=== PATIENT | female | born 1995 | race African-American/Black ===

== ENCOUNTER 2021-03-11 16:09 | Emergency (ER) | payer MEDICAID ==
[~2021-03-11] VITALS: Ht 160 cm; Wt 78.6 kg
[2021-03-11] MEDS ORDERED: FLUORESCEIN SODIUM 1 MG STRIP OU ONE (16:45)
[2021-03-11 17:09] VITALS: BP 115/72
== END 2021-03-11 17:13 | disposition home or self-care (01) ==
LOC: EMS 16:09
DX: H10.89 Other conjunctivitis (principal); J45.909 Unspecified asthma, uncomplicated
CPT/HCPCS: 99283